=== PATIENT | male | born 1970 | race Caucasian/White ===

== ENCOUNTER → 2022-01-04 | Outpatient (CLI) | payer OTHER ==
--- NOTE | 2022-01-04 11:14 | XR ---
Right forearm HISTORY: Pain and swelling 2 views right forearm Calcification is present at the level of the common extensor tendon origin greater than the common fl exor tendon origin at the distal humerus. There is no fracture or dislocation. Bone mineralization, j oint spaces and alignment are maintained. There is soft tissue swelling present. IMPRESSION: Correlate for cellulitis, edema. There may be calcific tendinitis changes. Elbow MRI may be of benefit.
--- NOTE | 2022-01-04 11:15 | XR ---
EXAMINATION TYPE: XR elbow complete RT DATE OF EXAM: 01/04/2022 CLINICAL HISTORY: Pain and swelling TECHNIQUE: Frontal, lateral and oblique images of the right elbow are obtained. COMPARISON: None FINDINGS: There is no acute fracture/dislocation evident in the right elbow. No abnormal fat pad si gns are seen. Spurring from the lateral epicondyle distal humerus at the extensor tendon insertion i s noted. Mild subcutaneous edema proximal forearm ulnar aspect. IMPRESSION: As above.
== END | disposition home or self-care (01) ==
LOC: RADXRMAIN 10:19
PROVIDERS: ATTEND Emergency Medicine
DX: S56.911A Strain of unspecified muscles, fascia and tendons at forearm level, right arm, initial encounter (principal); X58.XXXA Exposure to other specified factors, initial encounter